=== PATIENT | female | born 1955 | race Caucasian/White ===

== ENCOUNTER 2022-08-20 06:46 | Emergency (ER) | payer OTHER ==
[2022-08-20] MEDS ORDERED: Dexamethasone 10 MG/ML VIAL ONE (07:35)
[2022-08-20] MEDS ORDERED: Lidocaine 1% PF 5 ML VIAL ONE (07:41)
[2022-08-20] MEDS ORDERED: cefTRIAXone\\ROCEPHIN 1 GM VIAL ONE (07:41)
== END 2022-08-20 08:15 | disposition home or self-care (01) ==
LOC: BURERS 06:46
DX: J02.9 Acute pharyngitis, unspecified (principal); Z20.822 Contact with and (suspected) exposure to COVID-19
CPT/HCPCS: 87081; 87430; 96372; 99284; J0696; J1100